=== PATIENT | male | born 1975 | race Caucasian/White ===

== ENCOUNTER → 2017-12-11 | Outpatient (CLI) | payer BC ==
[~2017-12-11] MED LIST: OXYC-643 PO
--- NOTE | 2017-12-11 16:43 | DIAGNOSTIC IMAGING REPORT ---
L FOOT MIN 3 VIEWS ROUTINE CLINICAL HISTORY: S99.922D Foot injury, left, COMPARISON: None. DISCUSSION: The bones and joint spaces appear intact. There is no evidence of fracture, dislocation or bony disease. There is no evidence for soft tissue swelling. IMPRESSION: Negative study. The above report was generated using voice recognition software. It may contain grammatical, syntax or spelling errors. Electronically signed by: Emigdio Forte M.D. 12/11/2017 4:42 PM Dictated Date/Time: 12/11/2017 4:42 PM
--- NOTE | 2017-12-11 16:44 | DIAGNOSTIC IMAGING REPORT ---
L ANKLE MIN 3 VIEWS ROUTINE CLINICAL HISTORY: S99.922D Foot injury, left, trauma COMPARISON: None. DISCUSSION: The bones and joint spaces appear intact. There is no evidence of fracture, dislocation or bony disease. There is no evidence for soft tissue swelling. IMPRESSION: Negative study. The above report was generated using voice recognition software. It may contain grammatical, syntax or spelling errors. Electronically signed by: Emigdio Forte M.D. 12/11/2017 4:43 PM Dictated Date/Time: 12/11/2017 4:42 PM
== END | disposition home or self-care (01) ==
LOC: C.RADPV 16:20
PROVIDERS: ATTEND Family Medicine
DX: S99.922D Unspecified injury of left foot, subsequent encounter (principal); X58.XXXD Exposure to other specified factors, subsequent encounter